=== PATIENT | female | born 1935 | race Caucasian/White ===

== ENCOUNTER 2018-05-18 12:03 | Observation (INO) ==
[2018-05-18] MEDS ORDERED: SALINE FLUSH 10ml SYRINGE IVF PRN (12:07)
[2018-05-18] MEDS ORDERED: TETANUS IM ONE (12:07)
[2018-05-18] MEDS ORDERED: DIPHTHERIA IM ONE (12:07)
--- NOTE | 2018-05-18 12:08 | Emergency Department Report ---
Fall HPI - General Chief Complaint: Fall Stated Complaint: FALL Time Seen by Provider: 05/18/18 12:08 Source: patient, EMS Mode of arrival: EMS Limitations: no limitations - History of Present Illness HPI Narrative: Patient is a 2-year-old female presents emergency room for intractable nausea and vomiting post fall. Patient was working in her garden, lost her balance and tripped fell forward striking her face on the ground. Patient does have an abrasion just above the bridge of her nose. Since that time patient's had multiple episodes of emesis, family became some concerns so EMS was called. Patient was taken a [facility] where it was determined the patient would need a head CT. They do not have head CT capabilities at this time so [facility] was contacted. Patient did have a blood pressure of 90/ 40 while in the emergency department was given 500 mL of normal saline in route. On arrival patient is alert and oriented 3 no complaints of a headache no continuing to complain of emesis did have emesis 1 in the back of the ambulance. Patient vital signs are within defined limits blood pressure 116/56 - Related Data Home Medications Medication Instructions Recorded Confirmed Ascorbic Acid [Vitamin C] 500 mg PO DAILY 05/18/18 05/18/18 Calcium Carbonate/Vitamin D3 1 tab PO DAILY 05/18/18 05/18/18 [Calcium 600 + Vit D Tablet] Ferrous Sulfate [Iron] 325 mg PO DAILY 05/18/18 05/18/18 Fluorouracil 5% Cream [Efudex 5% 1 applicatio TOP DAILY 05/18/18 05/18/18 Cream] Lysine [l-Lysine] 500 mg PO DAILY 05/18/18 05/18/18 Multivitamin [One Daily 1 tab PO DAILY 05/18/18 05/18/18 Multivitamin] Allergies Allergy/AdvReac Type Severity Reaction Status Date / Time No Known Allergies Allergy Verified 05/18/18 12:22 Review of Systems Constitutional: Denies: fever, chills, weakness Eyes: Denies: eye pain, eye discharge, vision change ENT: Denies: ear pain, throat pain, dental pain Cardiovascular: Denies: chest pain, palpitations, dyspnea on exertion Respiratory: Denies: cough, dyspnea, wheezes Gastrointestinal: Reports: nausea, vomiting. Denies: abdominal pain Musculoskeletal: Denies: back pain Neurological: Denies: headache, weakness, numbness, paresthesias, confusion Psychiatric: Denies: anxiety, depression Endocrine: Denies: fatigue Hematological/Lymphatic: Denies: easy bleeding Allergic/Immunologic: Denies: facial swelling PFSH Medical History Updates: Denies - Social History Smoking status: Never smoker Substance use type: does not use Alcohol intake frequency: does not drink Physical Exam - General General appearance: alert, in no apparent distress - Head Head exam: normocephalic, other (abrasion to anterior forehead) - Eye Eye exam: Present: PERRL, EOMI - ENT ENT exam: Present: normal oropharynx, mucous membranes moist, TM's normal bilaterally - Neck Neck exam: Present: full ROM, trachea midline - Chest Chest inspection: Present: symmetric chest wall rise. Absent: tenderness - Respiratory Respiratory exam: Present: normal lung sounds bilaterally. Absent: respiratory distress, wheezes, stridor - Cardiovascular Cardiovascular exam: Present: regular rate, normal rhythm, normal heart sounds - Abdominal Exam Abdominal exam: Present: soft, normal bowel sounds. Absent: distention, tenderness - Extremities Exam Extremities exam: Present: full ROM, normal capillary refill. Absent: tenderness - Back Exam Back exam: Present: full ROM. Absent: tenderness, CVA tenderness (R), CVA tenderness (L), muscle spasm, paraspinal tenderness, vertebral tenderness - Skin Skin exam: Present: warm, dry - Expanded Neurological Exam Patient oriented to: Present: person, place, time Speech: Present: fluid speech Cranial nerves: Normal: EOM function (II, III, IV, ), facial sensation (V), facial palsy (VII), gag reflex (IX), spinal accessory function (XI), tongue deviation (XII) Motor strength - LUE: 5/5 Motor strength - RUE: 5/5 Motor strength - LLE: 5/5 Motor strength - RLE: 5/5 Sensory exam upper extremity: Normal: light touch Sensory exam lower extremity: Normal: light touch DTR: 2+: biceps (L), biceps (R), patellar (L), patellar (R) Coma scale eye opening: spontaneous Coma scale motor response: obeys commands Coma scale verbal response: oriented Coma scale total: 15 - Psychiatric Psychiatric exam: Present: normal affect, normal mood Fall - Differential Diagnosis Likely: syncope - Medical Records Attestation: I reviewed the patient's medical records. - Lab Data Attestation: I reviewed the patient's lab results. Result diagrams: 05/18/18 12:11 05/18/18 12:11 - Radiology Data Attestation: I reviewed the patient's radiology results. CT head: No acute intracranial abnormality Chest x-ray: No acute cardiopulmonary findings Disposition Clinical Impression: Postconcussion syndrome Disposition: 02 To OBS [facility] Prescriptions: No Action Calcium Carbonate/Vitamin D3 [Calcium 600 + Vit D Tablet] 1 tab PO DAILY Multivitamin [One Daily Multivitamin] 1 tab PO DAILY Lysine [l-Lysine] 500 mg PO DAILY Ascorbic Acid [Vitamin C] 500 mg PO DAILY Fluorouracil 5% Cream [Efudex 5% Cream] 1 applicatio TOP DAILY Ferrous Sulfate [Iron] 325 mg PO DAILY Referrals: Primary Care,[facility] [Primary Care Provider] - Time of Disposition: 14:08 - Seen By: physician
[2018-05-18] MEDS ORDERED: ONDANSETRON 4 MG/2 ML INJECTION IVP ONE (12:21)
--- OUTSIDE RECORDS SUMMARY | 2018-05-18 12:25 | External Medical Summary ---
:1935 Author Organization [facility]. Summary purpose CCDA Sent to [facility] Chief Complaint and Reason for Visit No authorized Reason for Visit (Admitting Diagnosis) is available for this visit. Problem list No authorized problems tracked for continuity of care are available for this visit. Encounters No authorized problems tracked for encounter diagnoses are available for this visit. Medications No medications recorded for this patient visit Allergies, adverse reactions, alerts No allergy information is available for this patient. Immunizations No immunizations recorded for this patient visit Relevant diagnostic tests and/or laboratory data RESULTS CBC :10:00 Result Normal Range Units WBC 7.45 4.8-10.8 x103/mm3 Neutrophil % 59.1 50-70 % Lymph % 28.7 20-50 % Oliver % H 10.2 1.0-9.0 % Eosinophil % 1.7 0-4 % Basophil % 0.3 0-2 % Neutrophil # 4.40 3.0-7.0 x103/mm3 Lymph # 2.14 1.0-4.0 x103/mm3 Oliver # 0.76 0.0-0.8 x103/mm3 Eosinophil # 0.13 0-0.5 x103/mm3 Basophil # 0.02 0-0.2 x103/mm3 RBC L 3.91 4.20-5.40 x103/mm3 HGB 12.0 12.0-16.0 g/dl HCT L 35.1 37.0-47.0 % MCV 89.8 81-99 FL MCH 30.7 27.0-31.0 pg MCHC 34.2 32.0-36.0 g/dl RDW 12.8 12-15 % Platelet 306 150-400 x103/mm3 MPV 9.1 6.0-10.0 FL Chemistry Group :10:00 Result Normal Range Units Sodium L 133 134-145 mmol/L Potassium 4.8 3.6-5.0 mmol/L Chloride 98 98-107 mmol/L CO2 27 22-30 mmol/L Glucose 97 75-110 mg/dl BUN 16 9-20 mg/dl Creatinine L .67 0.8-1.7 mg/dl eGFR 84 ml/min. Total Protein 7.2 6.3-8.2 g/dl Albumin 3.8 3.5-5.0 g/dl Calcium 9.1 8.4-10.2 mg/dl Alk Phos 56 38-126 U/L AST 16 14-36 U/L ALT 15 11-66 U/L T Bili .5 0.2-1.3 mg/dl A/G Ratio 1.1 Ratio Special Chemistry Group [id number] Result Normal Range Units TSH 1.34 0.50-6.00 uIU/mL History of procedures Procedure Code Code Type Description Date Performed Performing Physician 32725 CPT-4 COMPLETE CBC, 07-21-2016 JORGE DIAMOND AUTOMATED 79934 CPT-4 COMPREHEN METABOLIC 07-21-2016 JORGE DIAMOND PANEL 34267 CPT-4 ASSAY THYROID STIM 07-21-2016 JORGEKatharine DIAMOND HORMONE Functional status No functional or cognitive status observations are available for this visit. Vital signs No authorized vital signs are available for this visit. Social history No Social History or smoking status observations were recorded for this visit. ( Unknown if ever smoked.) Treatment Plan No treatment plan text is available for this visit. Hospital discharge instructions No discharge instruction text is available for this visit.
--- OUTSIDE RECORDS SUMMARY | 2018-05-18 12:25 | External Medical Summary ---
:1935 Author Organization [facility]. Summary purpose CCDA Sent to [facility] Chief Complaint and Reason for Visit No [...] visit Relevant diagnostic tests and/or laboratory data No authorized results are available for this patient visit History of procedures No procedures recorded for this patient visit. Functional status No functional or cognitive status [...]
[2018-05-18] MEDS ORDERED: PROCHLORPERAZINE 10 MG/2 ML INJECTION IVP PRN (14:39)
[2018-05-18] MEDS ORDERED: ONDANSETRON ODT 4 MG TABLET PO PRN (14:39)
[2018-05-18 14:40] VITALS: BMI 22.1
--- NOTE | 2018-05-18 14:46 | History & Physical Report ---
History of Present Illness Date: 05/18/18 Chief complaint: Passed out HPI: Lisa Sampson is a healthy 82 y/o woman who describes a syncopal event. Her morning started out as usual: she went for a mile walk, then sat down and ate breakfast and drank coffee. She did not drink much water and was indeed sweating. She then went to her garden and picked a couple cucumbers. She walked to her next door neighbor's to give her the garden prize when she began feeling lightheaded and dizzy. She asked to lie down, b/c she was afraid she'd faint ( this happened a couple years ago, also soon after walking). Per her son and daughter, she stiffened up while in the standing position then fell forward, hitting her forehead on a decorative rock. She was unconscious for a few seconds , and when she awoke she vomited numerous times (no blood was seen in her emesis ). She did not have any oral injuries nor did she lose control of bowel/ bladder. She denies precipitating features such as chest pain, palpitations, skipping heartbeat, visual changes, dyspnea, nausea. She denies any recent illness such as fever/chills, cough/congestion, abdominal pain, n/v/d/c, dysuria , or rashes/skin infections. She denied any paresthesias or unilateral weakness prior to the event or thus far after. She does note a mild headache that started after she fell. Family deny any behavioral changes or confusion or dysarthria. She had some mild tremors when walking after the event. 911 was activated and she was taken to the ED in [place]. She had a low BP of 90/40 and was bolused 500 mL NS. She continued to have emesis and it was recommended for her to proceed [place] [facility] [place]. CT scan of her head was negative. Labs showed leukocytosis with WBC of 17.5; mild anemia with hgb of 11.9. CMP was unremarkable. UA was negative for UTI but suggested dehydration with 2+ ketones and high specific gravity. Trop was negative. CXR was also nonrevealing. She received Zofran in the ED and her nausea subsided. She was subsequently admitted to the hospitalist service, obs status. Review of Systems All systems PM: 10-point ROS was reviewed, no additional remarkable complaints except Review of systems: positive ROS highlighted in HPI Past Medical History Medical History Updates: Precancerous lesions to face Surgical History: Denies Family History Updates: Mother of lung cancer, age 72. Father of asthma, age 58. She has had 4 sisters. 3 of them have from cancer (one had lymphoma, another with blood cancer; unknown on 3rd sister). The remaining sister is alive and well and in her 90s. She has 2 brothers - one with skin cancer and the other is healthy. There is also a family history of fainting and lightheadedness. 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 Medications Home Medications Medication Instructions Recorded Confirmed Type Ascorbic Acid [Vitamin C] 500 mg PO DAILY 05/18/18 05/18/18 History Calcium Carbonate/Vitamin D3 1 tab PO DAILY 05/18/18 05/18/18 History [Calcium 600 + Vit D Tablet] Ferrous Sulfate [Iron] 325 mg PO DAILY 05/18/18 05/18/18 History Fluorouracil 5% Cream [Efudex 5% 1 applicatio TOP DAILY 05/18/18 05/18/18 History Cream] Lysine [l-Lysine] 500 mg PO DAILY 05/18/18 05/18/18 History Multivitamin [One Daily 1 tab PO DAILY 05/18/18 05/18/18 History Multivitamin] Allergies Allergy/AdvReac Type Severity Reaction Status Date / Time No Known Allergies Allergy Verified 05/18/18 12:22 Exam Vital Signs: Temperature 97.6 F 05/18/18 12:33 Pulse Rate 86 05/18/18 13:35 Respiratory Rate 20 05/18/18 12:33 Blood Pressure 159/71 H 05/18/18 13:35 Pulse Oximetry 96 05/18/18 12:33 Telemetry Rhythm: Sinus Rhythm - Constitutional Present: no acute distress, well nourished, well developed - Routine HEENT Exam Head: Present: abrasion (forehead). Absent: atraumatic Eye: Present: PERRL. Absent: conjunctival icterus, scleral injection ENT: Present: mucous membranes moist, oropharynx clear, nares patent. Absent: dentition normal (upper dentures; decay noted to lower teeth) - Routine Neck Exam Present: supple. Absent: lymphadenopathy - Routine Respiratory Exam Present: CTA bilaterally - Routine Cardiovascular Exam Present: RRR, S1, S2 - Routine Abdominal Exam Present: soft, normoactive bowel sounds, non distended, non tender - Routine Extremities Exam Present: no edema, pulses intact. Absent: calf tenderness - Routine Skin Exam Present: dry, warm Comments: abrasions noted to forehead - Routine Neurological Exam Present: alert, oriented X3, CN II-XII intact, moving all extremities, vision grossly intact, hearing grossly intact, normal speech. Absent: sensory deficit , motor deficit, pronator drift, altered mental status, nystagmus, facial asymmetry, tremors - Routine Psychiatric Exam Present: normal affect, normal thought process, cooperative Results - Labs CBC & Chem 7: 05/18/18 12:11 05/18/18 12:11 - Imaging and Cardiology Chest x-ray Status: image reviewed by me Additional comments: no failure or infiltrate seen CT scan - head Status: image reviewed by me Additional comments: no bleeding or infarct Assessment and Plan (1) Syncope Current visit: Yes Status: Acute Assessment and Plan: Assessment Syncope Dehydration Forehead abrasion - Tdap updated in ED Postconcussive syndrome with headache and recurrent n/v Leukocytosis, infection not suspected Plan Admit, obs. status. Monitor on tele. Check EKG, echo, carotid dopplers. Trend trop. Consult PT/OT for assessment. Consider neuro and/or cardiovascular consults. ?Holter monitor. Diet: clears, advance to regular as tolerated. IVF: NS @ 75 mL/hr. Zofran PRN n/v. Monitor BGM, ?hypoglycemic rxn. Discussed advanced directives. She does not have any but wishes to name her daughter as primary and her son as secondary DPOAs. She requests DNR status. Will help facilitate these directives tomorrow. D/W Dr. Israel. DVT Prophylaxis: SCD's Resuscitation Status: Do Not Resuscitate - Physician Narrative Physician: Sathish Israel MD Narrative: Date: 05/18/18 Time: 1711 Have independently interviewed and examined pt. Chart reviewed. Case discussed with ED physician and my ACCESS CLERK. Care plan developed with my supervision; agree with above. In typical state of health this am. Doing garden work this am. Went over to neighbors to give some of her produce. While sitting and visiting, started to feel funny. Pass out, having trauma to anterior forehead. Very nauseated on ride to ED. Very nauseated with emesis in ED. No recent viral syndrome. Appetite stable prior. Bowel function stable prior. Breathing without difficulty or cough/congestion. No chest pressure or pain. Lungs: clear bilaterally CV: regular AB: soft nt/nd MSE: awake alert appropriate Plan: OBS admission for further evaluation and treatment-likely heat stroke and post concussive syndrome. IVF for hydration. Monitor mentation and neuro status. Control nausea. Increase activities as able once nausea abates. Hospital Course Summary Disclaimer: The visit summary below is not to be considered part of the above Progress Note. Hospital Course: 05/18/18 Admit, OBS status. Monitor on tele. Check EKG, echo, carotid Dopplers. Trend trop. Consult PT/OT for assessment. Consider neuro and/or cardiovascular consults. ?Holter monitor. Diet: clears, advance to regular as tolerated. IVF: NS @ 75 mL/hr. Zofran PRN n/v. Monitor BGM, ?hypoglycemic rxn. Discussed advanced directives. She does not have any but wishes to name her daughter as primary and her son as secondary DPOAs. She requests DNR status.
[2018-05-18] MEDS: NS 1,000 ML IV SCH (15:19)
[2018-05-18] MEDS: ACETAMINOPHEN 325 MG TABLET PO PRN ×2 (17:55→23:28)
[2018-05-18 19:25] VITALS: RESP 16; TEMP 97.1
[2018-05-19] MEDS: NS 1,000 ML IV SCH (04:24)
--- NOTE | 2018-05-19 07:38 | XRay Report ---
Indication: elevated white count syncopal episode rule out infection PROCEDURE: XR chest 1V: Encounter: Initial Comparison: None FINDINGS: The lungs are clear. There is no abnormal airspace opacity, pleural effusion or pneumothorax identified. The heart size, pulmonary vasculature and mediastinum are within normal limits. Scoliosis IMPRESSION: No acute cardiopulmonary abnormality. .
--- NOTE | 2018-05-19 07:40 | CT Scan Report ---
Indication: fall, emesis, question seizure rule out intracranial PROCEDURE: CT head/brain wo con: Encounter: Initial Comparison: None Technique: Axial CT images through the head were performed without contrast. Iterative Reconstruction dose reducing technique was utilized. FINDINGS: The ventricles are of normal size, shape, and contour for the patient's age. There are scattered areas of low attenuation in the white matter which most likely represent changes from chronic microvascular ischemia. The brainstem, cerebellum, and cerebral hemispheres otherwise have a normal morphology and CT attenuation. There is no evidence of midline displacement. No hemorrhage, signs of acute territorial stroke, mass effect, mass lesions, or edema is evident. The visualized portions of the skull base, midface, and calvarium demonstrate no abnormality. The paranasal sinuses are well aerated and free of significant disease. The tympanic and mastoid cavities appear normal. IMPRESSION: No acute intracranial abnormality or hemorrhage. There is a preliminary report by [facility]. .
[2018-05-19 08:03] VITALS: BP 128/80; PULSE 82; O2SAT 97
--- NOTE | 2018-05-19 15:39 | Ultrasound Report ---
Indication: syncope PROCEDURE: US carotid doppler BI: TECHNIQUE: Grayscale, color and duplex Doppler imaging was performed of the carotid systems bilaterally. Velocities in cm/sec - validated velocity measurements with angiographic measurements, velocity criteria are extrapolated from diameter data as defined by the Society of Radiologists in Ultrasound Consensus Conference Radiology 2003; 229;340-346. RIGHT: PSV ICA 112 EDV ICA 24 PSV CCA 114 EDV CCA 22 SVR .9 PSV ECA 152 ICA Diameter reduction <20% (0.8-1.0)% LEFT: PSV ICA 94 EDV ICA 30 PSV CCA 117 EDV CCA 26 SVR .9 PSV ECA 119 ICA Diameter reduction <20% (0.8-1.0)% The right vertebral artery is patent with cephalic flow. The left vertebral artery is patent with cephalic flow. Bilateral common carotid intimal wall thickening. No significant velocity elevation. IMPRESSION: No hemodynamically significant carotid stenosis. .
--- NOTE | 2018-05-19 16:11 | Discharge Summary ---
Discharge Information Date of admission: 05/18/18 13:57 Anticipated date of discharge: 05/19/18 Attending Physician: Sathish Israel MD Primary care physician: [facility] Consults: Case Management Consult [CONS] Routine Reason For Exam: wants to name dtr/son as DPOA; Caring Conv. book - Discharge Diagnosis (1) Syncope Status: Acute Syncope vs. heat exposure Dehydration - resolved Forehead abrasion - Tdap updated in ED Postconcussive syndrome with headache and recurrent n/v - resolved Leukocytosis, resolved - Laboratory Labs: 05/19/18 05:02 05/19/18 05:02 - Radiology Radiology: Date of Exam: 05/18/18 PROCEDURE: CT head/brain without contrast: FINDINGS: The ventricles are of normal size, shape, and contour for the patient' s age. There are scattered areas of low attenuation in the white matter which most likely represent changes from chronic microvascular ischemia. The brainstem , cerebellum, and cerebral hemispheres otherwise have a normal morphology and CT attenuation. There is no evidence of midline displacement. No hemorrhage, signs of acute territorial stroke, mass effect, mass lesions, or edema is evident. The visualized portions of the skull base, midface, and calvarium demonstrate no abnormality. The paranasal sinuses are well aerated and free of significant disease. The tympanic and mastoid cavities appear normal. IMPRESSION: No acute intracranial abnormality or hemorrhage. = = = = = = = = = = = = = = = = = = = = = = = = = = = = = = = = = = = = = = = = = = = = = = = = = = = = = = = = = = = Date of Exam: 05/18/18 PROCEDURE: XR chest 1V: FINDINGS: The lungs are clear. There is no abnormal airspace opacity, pleural effusion or pneumothorax identified. The heart size, pulmonary vasculature and mediastinum are within normal limits. Scoliosis IMPRESSION: No acute cardiopulmonary abnormality. = = = = = = = = = = = = = = = = = = = = = = = = = = = = = = = = = = = = = = = = = = = = = = = = = = = = = = = = = = = Date of Exam: 05/19/18 PROCEDURE: US carotid doppler: RIGHT: PSV ICA 112 EDV ICA 24 PSV CCA 114 EDV CCA 22 SVR .9 PSV ECA 152 ICA Diameter reduction <20% (0.8-1.0)% LEFT: PSV ICA 94 EDV ICA 30 PSV CCA 117 EDV CCA 26 SVR .9 PSV ECA 119 ICA Diameter reduction <20% (0.8-1.0)% The right vertebral artery is patent with cephalic flow. The left vertebral artery is patent with cephalic flow. Bilateral common carotid intimal wall thickening. No significant velocity elevation. IMPRESSION: No hemodynamically significant carotid stenosis. History of Present Illness HPI: Lisa Sampson is a healthy 82 y/o woman who describes a syncopal event. Her morning started out as usual: she went for a mile walk, then sat down and ate breakfast and drank coffee. She did not drink much water and was indeed sweating. She then went to her garden and picked a couple cucumbers. She walked to her next door neighbor's to give her the garden prize when she began feeling lightheaded and dizzy. She asked to lie down, b/c she was afraid she'd faint ( this happened a couple years ago, also soon after walking). Per her son and daughter, she stiffened up while in the standing position then fell forward, hitting her forehead on a decorative rock. She was unconscious for a few seconds , and when she awoke she vomited numerous times (no blood was seen in her emesis ). She did not have any oral injuries nor did she lose control of bowel/ bladder. She denies precipitating features such as chest pain, palpitations, skipping heartbeat, visual changes, dyspnea, nausea. She denies any recent illness such as fever/chills, cough/congestion, abdominal pain, n/v/d/c, dysuria , or rashes/skin infections. She denied any paresthesias or unilateral weakness prior to the event or thus far after. She does note a mild headache that started after she fell. Family deny any behavioral changes or confusion or dysarthria. She had some mild tremors when walking after the event. 911 was activated and she was taken to the ED in [place]. She had a low BP of 90/40 and was bolused 500 mL NS. She continued to have emesis and it was recommended for her to proceed to [facility] for CT scanning capability. CT scan of her head was negative. Labs showed leukocytosis with WBC of 17.5; mild anemia with hgb of 11.9. CMP was unremarkable. UA was negative for UTI but suggested dehydration with 2+ ketones and high specific gravity. Trop was negative. CXR was also nonrevealing. She received Zofran in the ED and her nausea subsided. She was subsequently admitted to the hospitalist service, obs status. Objective Vital signs: Temperature 97.1 F 05/18/18 19:24 Pulse Rate 82 05/19/18 08:00 Respiratory Rate 16 05/19/18 08:00 Blood Pressure 128/80 05/19/18 08:00 Pulse Oximetry 97 05/19/18 08:00 Height/Weight/BMI: Height 1.55 m Weight 55.2 kg Body Mass Index 22.1 - Constitutional Present: no acute distress, well nourished, well developed - Routine HEENT Exam Head: Present: normocephalic Eye: Present: PERRL. Absent: conjunctival icterus, scleral injection ENT: Present: mucous membranes moist, oropharynx clear - Routine Respiratory Exam Present: CTA bilaterally - Routine Cardiovascular Exam Present: RRR, S1, S2 - Routine Abdominal Exam Present: soft, normoactive bowel sounds, non distended, non tender - Routine Extremities Exam Present: no edema - Routine Skin Exam Present: dry, warm, wounds (abrasion to forehead improved) - Routine Neurological Exam Present: alert, oriented X3, CN II-XII intact, moving all extremities, vision grossly intact, hearing grossly intact, normal speech. Absent: sensory deficit , motor deficit, altered mental status, facial asymmetry - Routine Psychiatric Exam Present: normal affect, normal thought process, cooperative Hospital Course This is a general summary of the patient's hospital course. For more details refer to the complete medical record. Hospital course: Lisa was admitted to observation status on 05/18/18. She was placed on telemetry, and she remained in sinus overnight. Syncope w/u was ordered including EKG, echo , dopplers. Doppler was neg for significant carotid stenosis. Echo was pending at time of DC. Trop was neg x3. She was started on clear liquid diet but her n/ v resolved and diet was advanced, which she tolerated well. She was evaluated by PT/OT and found to be at baseline. Her leukocytosis resolved and chemistry panel remained stable by day of discharge. DPOA papers were completed during her hospitalization stay. She was able to be discharged home in stable condition on 05/19/18. She was encouraged to increase her water intake, especially in the warmer weather. She plans on f/u with [facility] in [place] - she would like to have [id number] DNR order completed as well. She and her daughter were without questions at time of discharge. Time spent with patient: discharge greater than 30 minutes Resuscitation Status: Do Not Resuscitate Discharge Plan - Discharge Disposition Discharge Date: 05/19/18 Disposition: 01 Discharged Home, Self-Care *Condition: Stable Reason For Visit (Visit label in EMR): Nausea/Dizziness - Discharge Medications *Discharge Medications: Continue Calcium Carbonate/Vitamin D3 [Calcium 600 + Vit D Tablet] 1 tab PO DAILY Multivitamin [One Daily Multivitamin] 1 tab PO DAILY Lysine [l-Lysine] 500 mg PO DAILY Ascorbic Acid [Vitamin C] 500 mg PO DAILY Fluorouracil 5% Cream [Efudex 5% Cream] 1 applicatio TOP DAILY Ferrous Sulfate [Iron] 325 mg PO DAILY - Discharge Packet/Instructions *Diet: Regular diet. Increase water intake especially in hot weather and if you are working outside. *Activity: No restrictions. *Pain Management/Treatment: Tylenol if needed for headache. *Wound Care: May use an [id number] antibiotic ointment x2 days to the abrasion on your forehead. Additional Instructions: Your Tetanus shot was updated during hospitalization. *Expected Signs/Symptoms: You may occasionally feel dizzy, lightheaded, nauseated, or have a headache, but these symptoms should gradually resolve. *Notify Physician if: You have an uncontrolled headache, pass out again, have chest pain or difficulty breathing, fever, or stroke-like symptoms. *During Business Hours Contact: [facility] *After Business Hours Contact: The on-call provider at [facility] *Pending Lab/Results: Follow up w/your PCP (Echo result still pending) - Referrals/Follow Up *Referrals/Follow Up: Gustavo Davis [Physician] - 1 Week (Echo pending.) - Patient Handouts - Dismissal Complete Discharge Instructions are:: Complete Physician Narrative - Narrative Physician: Sathish Israel MD Attestation Narrative: Date: 05/19/18 Time: 184 Have independently interviewed and examined patient prior to discharge. Chart reviewed. Case discussed with my PERSONAL PROPERTY ASSESSOR. Care plan developed with my supervision; agree with above. Doing very well today. No nausea-eating and drinking well. Up ambulatory without difficulty. No headache or head pain. Thought clear. Breathing well. Feels much improved from yesterday. Does feel ready to go home. Lungs: clear bilaterally CV: regular AB: soft nt MSE: awake alert appropriate Plan: Medically stable for discharge to home. Encouraged patient to continue to stay active as she had been doing. Encourage plenty of fluids with hot weather. Patient reports she is planning on avoiding outside activities during heat of the day. F/U with Dr Davis for care. See orders for details.
--- NOTE | 2018-05-19 17:20 | Echocardiogram ---
DATE OF PROCEDURE May 19, 2018 This is a two-dimensional echo with spectral Doppler, color-flow and M-mode. It was obtained in a patient with syncope. Left atrial dimension is normal. Left ventricular end-diastolic dimension is normal. Left ventricular wall thickness is normal. LV systolic function is normal with ejection fraction of 60%. Right atrium is normal. Right ventricle is normal. Aortic root dimension is normal. Mitral valve is morphologically normal with trace of mitral regurgitation. Aortic valve is a trileaflet structure with no stenosis or insufficiency. Tricuspid valve shows mild-to- moderate tricuspid regurgitation with mild pulmonary hypertension with estimated pulmonary artery systolic pressure of 34. Pulmonary valve shows no pulmonary insufficiency. There is no pericardial effusion. IMPRESSION 1. Normal LV systolic function with ejection fraction of 60%. 2. Trace of mitral regurgitation. 3. [id number] tricuspid regurgitation with mild pulmonary hypertension with estimated pulmonary artery systolic pressure of 34. MTDD
== END 2018-05-19 16:53 | disposition home or self-care (01) ==
LOC: ED 12:03 → EDHOLD 12:03 → MED 14:30
PROVIDERS: ADMIT Hospitalist; ATTEND Hospitalist